=== PATIENT | female | born 1950 | race Two or more races ===

== ENCOUNTER 2023-07-02 01:24 | Emergency (ER) | payer OTHER ==
[~2023-07-02] VITALS: Ht 152.4 cm; Wt 49.9 kg
[~2023-07-02 01:24] MED LIST: DILTIAZEM ER60 MG; ZIAC 2.5-6.251 EACH; [UNRECOGNIZED DRUG - OTHER]
[2023-07-02] MEDS ORDERED: ATORVASTATIN CA10 MG PO (01:47)
== END 2023-07-02 06:40 | disposition home or self-care (01) ==
LOC: ER 01:24
DX: S21.012A Laceration without foreign body of left breast, initial encounter (principal); Y33.XXXA Other specified events, undetermined intent, initial encounter; Y93.9 Activity, unspecified; Y92.9 Unspecified place or not applicable; Y99.9 Unspecified external cause status

== ENCOUNTER 2023-07-12 09:08 | Emergency (ER) | payer OTHER ==
[~2023-07-12] VITALS: Ht 152.4 cm; Wt 50.8 kg
[~2023-07-12 09:08] MED LIST changes: +ATORVASTATIN CA10 MG PO
== END 2023-07-12 10:06 | disposition home or self-care (01) ==
LOC: ER 09:09
DX: Z48.02 Encounter for removal of sutures (principal); I10 Essential (primary) hypertension

== ENCOUNTER 2023-07-14 08:51 | Emergency (ER) | payer OTHER ==
[~2023-07-14] VITALS: Ht 160 cm; Wt 54.4 kg
== END 2023-07-14 09:45 | disposition home or self-care (01) ==
LOC: ER 08:52
DX: Z48.02 Encounter for removal of sutures (principal); L08.9 Local infection of the skin and subcutaneous tissue, unspecified